=== PATIENT | female | born 1975 | race Caucasian/White ===

== ENCOUNTER → 2018-06-21 22:02 | Outpatient (CLI) | payer OTHER, BC, SELFPAY ==
[2018-06-28 07:10] LABS: HPV Reflexed? NOT INDICATED
== END ==
PROVIDERS: Visit Provider Nurse Practitioner Adult Health
DX: Z01.419 Encounter for gynecological examination (general) (routine) without abnormal findings (principal)
CPT/HCPCS: 88175; G0145

== ENCOUNTER → 2019-01-23 15:49 | Outpatient (CLI) | payer OTHER, SELFPAY ==
--- NOTE | 2019-01-23 15:53 | BI_ITS ---
MAMMOGRAPHY - BILATERAL SCREENING REASON FOR EXAM: Female, 43 years old. Routine annual screening examination. PERTINENT HISTORY: Non-contributory. TECHNIQUE: Digital bilateral breast polly (3D mammographic acquisition) in the CC and MLO projections. 2-D mediolateral oblique (MLO) and craniocaudad (CC) views of both breasts were obtained. CAD: Full Field Digital Mammography with Computer Added Detection was performed. COMPARISON: None. Baseline examination. FINDINGS: Breast Composition: The breasts are extremely dense, which lowers the sensitivity of mammography. There are no dominant masses or suspicious calcifications. No other significant abnormalities are identified. BI/SCREENING MAMM (CAD), BILAT IMPRESSION: Negative screening mammogram. Yearly followup mammogram recommended. (A) ASSESSMENT CATEGORY: BIRADS Category 1: Negative. A letter regarding these results will be sent to the patient by the facility within 30 days. Approximately 10% of breast cancers are not detected by mammography. A normal mammogram should not delay biopsy of a clinically suspicious abnormality. [id number] Electronically Signed: Taran Colon, at 9:09 EDT , Service support ,
== END ==
PROVIDERS: Family Provider Family Medicine; PCP Family Medicine; Referring Provider Nurse Practitioner Adult Health; Visit Provider Nurse Practitioner Adult Health
DX: Z12.31 Encounter for screening mammogram for malignant neoplasm of breast (principal)
CPT/HCPCS: 77063; 77067

== ENCOUNTER → 2023-08-15 | Outpatient (CLI) | payer OTHER, SELFPAY | END | disposition home or self-care (01) | PROVIDERS: PCP Family Medicine; Visit Provider Nurse Practitioner Family | DX: N39.0 Urinary tract infection, site not specified (principal) | CPT/HCPCS: 87077; 87086; 87088; 87186 ==

== ENCOUNTER → 2024-08-15 | Outpatient (CLI) | payer OTHER, SELFPAY ==
--- NOTE | 2024-08-15 14:58 | RAD_ITS ---
INDICATION: Abdominal pain EXAMINATION/TECHNIQUE: X-RAY - XR Abdomen W/ Decub and/or Erect Views COMPARISON: No relevant prior comparison study available FINDINGS: BOWEL GAS PATTERN: Non-obstructive. No bowel or stomach distention. FREE AIR: Not assessed on a single supine view. ORGANOMEGALY: Not seen. CALCIFICATIONS: No abnormal calcifications observed. LOWER CHEST: No acute pathology. BONES AND SOFT TISSUES: No acute pathology. There are fallopian tube coils visualized within the pelvis. RAD/Abd Inc Decub and/or Erect IMPRESSION: Non-obstructive bowel gas pattern. Electronically Signed: Shelly Garcia MD at 8:54 EDT ,
[2024-08-15 17:53] LABS: Basophil# 0.05 X10^3/uL; Basophil% 0.4 % (0-1); Eosinophil# 0.01 X10^3/uL; Eosinophils% 0.1 % (0-5); Hematocrit 41.3 % (37-47); Hemoglobin 14.1 g/dL (12.0-15.0); Mean Corp Hgb Conc 34.1 g/dL (32-36); Mean Corpuscular Volume 87.9 fL (81-99); Mean Platelet Vol. 9.1 fl (6.2-12.0); Monocyte# 0.37 X10^3/uL; Monocyte% 2.8 % (0-10); NRBC Flagged by Analyzer 0 % (0-5); Neutrophil # 12.03 X10^3/uL (2.7-7.7); Neutrophil % 90.4 % (47-70); Platelet Count 448 K/mm3 (150-450); RBC Distribution Width CV 12.6 % (11.6-14.6); RBC Distribution Width SD 40.8 fl (35.1-43.9); White Blood Count 13.3 K/mm3 (4.4-11.0)
[2024-08-15 18:28] LABS: AST(SGOT) 228 U/L (15-37); Alanine Aminotransfer ALT/SGPT 142 U/L (13-56); Albumin, Serum 3.7 g/dL (3.2-5.0); Alkaline Phosphatase 103 U/L (45-117); Amylase 54 U/L (25-115); Anion Gap 9 (5-15); BUN 12 mg/dL (7-18); BUN/Creat Ratio 14.1 RATIO (10-20); Calcium,Total 10.3 mg/dL (8.5-10.1); Chloride 102 mmol/L (98-107); Creatinine, Serum 0.85 mg/dL (0.55-1.02); EST Glomerular Filtration Rate 76 mL/min (>60); Est Glom Filt Rate - Afr Amer 91 mL/min (>60); Globulin 3.6 g/dL (2.2-4.2); Glucose 116 mg/dL (74-106); Lipase 32 U/L (13-75); Potassium 3.5 mmol/L (3.5-5.1); Protein, Total 7.3 g/dL (6.4-8.2); Sodium Level 134 mmol/L (136-145)
[2024-08-15 18:31] LABS: Erythrocyte Sedimentation Rate 10 mm/hr (0-30)
== END | disposition home or self-care (01) ==
LOC: MTLAB 14:58
PROVIDERS: PCP Family Medicine; Referring Provider Family Medicine; Visit Provider Family Medicine
DX: R10.9 Unspecified abdominal pain (principal)
CPT/HCPCS: 36415; 74019; 80053; 82150; 83690; 85025; 85652

== ENCOUNTER → 2024-08-17 | Outpatient (CLI) | payer OTHER, SELFPAY ==
--- NOTE | 2024-08-17 10:21 | US_ITS ---
STUDY: ABDOMINAL ULTRASOUND REASON FOR EXAM: Female, 49 years old. Recurrent right upper quadrant pain. TECHNIQUE: Transabdominal ultrasound was performed with real-time and static morley scale imaging. TECHNICAL QUALITY: Adequate. COMPARISON: None. FINDINGS: Liver: The liver measures 15.3 cm. There is increased echogenicity consistent with fatty infiltration. The bile ducts are within normal limits. There is hepatic color flow. The direction of portal flow is hepatopetal. There is a 2.5 cm x 2.4 cm x 2.5 cm cyst in the superior aspect of the left lobe of the liver. Gallbladder: Normal distended gallbladder. The gallbladder wall measures 2.3 mm. There is a negative sonographic Law''s sign. There is no pericholecystic fluid. There are multiple echogenic structures within the gallbladder, consistent with multiple gallstones. Sludge is also seen in the gallbladder lumen. Common Bile Duct (C.B.D.): The common bile duct measures 2.7 mm. Pancreas: Normal size of the head of the pancreas. The body and tail portions obscured by overlying bowel gas. There is normal echogenicity of the pancreas. There is no demonstrated pancreatic mass or cyst. Spleen: Normal size of the spleen. The spleen measures 11.4 cm x 5.2 cm x 4.8 cm. Right Kidney: Normal size of the right kidney. The right kidney measures 10.5 cm x 5.6 cm x 4.4 cm. Normal renal cortex. The right cortex measures 1.2 cm. There is no demonstrated renal mass or cyst. There is no right hydronephrosis. Left Kidney: Normal size of the left kidney. The left kidney measures 10.1 cm x 4 cm x 4.8 cm. Normal renal cortex. The left cortex measures 1.7 cm. There is no demonstrated renal mass or cyst. There is no left hydronephrosis. Aorta: Unremarkable I.V.C.: The IVC is patent. There is no ascites. US/Abdomen Complete IMPRESSION: Multiple gallstones and sludge within the gallbladder lumen. 2.5 cm x 2.4 cm x 2.5 cm cyst in the superior aspect of the left lobe of the liver. Electronically Signed: Taran Colon MD at 13:40 EDT ,
== END | disposition home or self-care (01) ==
LOC: OPUS 10:10
PROVIDERS: PCP Family Medicine; Referring Provider Family Medicine; Visit Provider Family Medicine
DX: K81.9 Cholecystitis, unspecified (principal)
CPT/HCPCS: 76700

== ENCOUNTER 2024-08-31 09:01 | Day surgery (SDC) | payer OTHER, SELFPAY ==
[2024-08-31] VITALS (11 sets, daily range): BP systolic 94–139; BP diastolic 64–78; PULSE 76–90; RESP 15–16; TEMP 36.3–37.1; O2SAT 96–100; BMI 27.4
--- NOTE | 2024-08-31 09:17 | EKG12_ITS ---
Test Reason : pre-op Blood Pressure : / mmHG Vent. Rate : 100 BPM Atrial Rate : 100 BPM P-R Int : 124 ms QRS Dur : 080 ms QT Int : 356 ms P-R-T Axes : 044 045 030 degrees QTc Int : 459 ms Normal sinus rhythm Minor Nonspecific ST abnormality Abnormal ECG No previous ECGs available Confirmed by Dipak June ([id number]), editor news LYNN BROOKS ([id number]) on 09/04/2024 12:11:39 PM Referred By: Marshall Guerra Confirmed By:Dipak June
[2024-08-31 09:30] LABS: Internal QC Validated? YES +Cl - CLEAR BKGD; Pregnancy, Urine Negative Negative
--- NOTE | 2024-08-31 09:36 | HP.PCM_ITS ---
History and Physical Date of Admission: 08/31/24 Intake Vital Signs 08/15/2308:57 08/21/2409:01 Height 5 ft 3 in 5 ft 3 in Weight: 158 lb BMI 28.0 BP 136/86 H Blood Pressure Location Rt brachial Position Sitting Respiration 16 Pulse 98 Pulse Source Monitor Temp 98.3 F Temp Source Temporal Pulse Oximetry (%) 100 Oxygen Delivery Method room air Intake Visit Reasons: GALLBLADDER Chief Complaint: Intermittent RUQ pain Accompanied by: Is patient in pain?: No Allergies Penicillins Allergy (Verified 08/21/24 08:59) Rash Medications ?Medication ?Instructions ?Recorded ?Confirmed ?Type omeprazole 40 mg capsule,delayed 40 mg PO BID 08/21/24 08/21/24 History release [facility] Medical History (Updated 08/21/24 @ 09:[address] Marshall Guerra MD) Encounter for Essure implantation Dysuria Social History (Updated 08/21/24 @ 09:03 by Eri Jaimes) Smoking Status: Never smoker alcohol intake: never substance use type: does not use additional social history: No aspirin or ibuprofen use. HPI HPI HPI: Patient is a 49-year-old female here with gallbladder disease. The patient has multiple stones and sludge on ultrasound. The patient reports that she has been having pain for about a year. She said it used to be intermittent but Wednesday she had an attack that did not go away she says when she had the attack the pain was in her epigastric and right upper quadrant region. ROS General General: No weight change, fatigue, colon cancer or breast cancer HEENT HEENT: No difficulty swallowing, eye injury, eye surgery or swollen glands Endo Endocrine: No thyroid disease, diabetes mellitus or thyroid cancer Skin Skin: No rash or changing moles Musc Musculoskeletal: No back problems, arthritis, rheumatoid arthritis or gout Cardio Cardiovascular: No murmur, pacemaker, heart disease, atrial fibrillation, high blood pressure, heart attack or heart stent Psych Psychiatric: No depression or anxiety Resp Respiratory: No shortness of breath, No sleep apnea, No cough, No COPD, No asthma and No emphysema Gastro Gastrointestinal: Yes abdominal pain (Intermittent RUQ), No nausea or vomiting, No diarrhea, No constipation, No blood in stool, No acid reflux, No hemorrhoids, No ulcers, Yes gallbladder problem and No black,tarry stools Glenn Hematologic: No blood thinners, No blood disorders, No bleeding, No anemia and No blood clots Neuro Neurologic: No numbness and No tingling Exam Const General: cooperative Orientation: alert and oriented x3 HENMT Head: normal to inspection Neck Neck: normal visual inspection and full ROM Chest Chest palpation & inspection: normal inspection of the chest Resp Effort & Inspection: normal respiratory effort Auscultation: clear to auscultation bilaterally Cardio Rate: regular rate Rhythm: regular rhythm GI Inspection: non-distended Palpation: soft and nontender Skin General: no rashes or lesions noted Neuro General: patient alert and patient oriented x3 Extrem General: full ROM Psych Appearance: grossly normal Mental Status: mental status grossly normal Assessment and Plan Assessment and Plan (1) Cholelithiasis: Status: Acute Qualifiers: Cholelithiasis location: gallbladder Cholecystitis presence: without cholecystitis Biliary obstruction: without biliary obstruction Qualified Code(s): K80.20 - Calculus of gallbladder without cholecystitis without obstruction Plan: The patient has been having right upper quadrant pain for a year but she had an attack on Wednesday that was more severe than she has ever had and it did not go away at the normal time. I explained this is likely cholecystitis and this pain did resolve eventually. I recommended laparoscopic cholecystectomy to prevent this from happening again future. I discussed the procedure in detail with the patient. I discussed the risks, benefits, and alternatives of the procedure. I discussed the risks including but not limited to bleeding, infection, injury to surrounding organs such as the liver, bile duct, bowels. I did discuss the possibility of having to convert to an open procedure as well as the possibility that if any injuries occurred this may necessitate further surgery at a tertiary care center. Marshall Guerra MD Pager: [facility] [address] [place] [address], [address] [place] [address] Office: I have examined the patient and the H&P has been reviewed. There are no clinical changes since date of exam.
[2024-08-31] MEDS: Lactated Ringers 1,000 ML 15 ML IV (09:54)
--- NOTE | 2024-08-31 10:09 | PRE.ANES_ITS ---
ASA Classification* ASA Classification ASA Classification: 2 Assessment & Plan Anesthesia* Anesthesia Assessment Anesthesia Assessment: Discussed sedation and/or anesthesia options, risks, benefits, and alternatives with patient/parents/legal guardian/POA. Questions invited. The patient/parents/legal guardian/POA seems to understand and agrees to proceed with anesthesia plan. Reviewed the physical assessment, medical history, allergy history and patient home medications list prior to surgery/procedure/anesthetic and documented any changes. Performed airway and anesthesia risk assessments. Anesthesia Type Anesthesia Type: General (see written pre anesthesia record for full assessment) Anesthesia Focused Assessment* Temperature: 97.3 F Pulse Rate: 90 Blood Pressure: 139/78 Respiratory Rate: 16 Pulse Ox: 100 Airway Assessment Mouth opens: >3 cm Mallampati Score: II Focused Labs Anesthesia Preop lab: CBC WBC 13.3 K/mm3 (4.4-11.0) H 08/15/24 15:00 RBC 4.70 M/mm3 (4.2-5.4) 08/15/24 15:00 Hgb 14.1 g/dL (12.0-15.0) 08/15/24 15:00 Hct 41.3 % (37-47) 08/15/24 15:00 Plt Count 448 K/mm3 (150-450) 08/15/24 15:00 CHEMISTRY Potassium 3.5 mmol/L (3.5-5.1) 08/15/24 15:00 Sodium 134 mmol/L (136-145) L 08/15/24 15:00 BUN 12 mg/dL (7-18) 08/15/24 15:00 Creatinine 0.85 mg/dL (0.55-1.02) 08/15/24 15:00 Glucose 116 mg/dL (74-106) H 08/15/24 15:00 COAG Urine Test Negative Negative 08/31/24 09:15 Pre-Assessment Diagnosis/Proposed Procedure Planned Operative Procedure(s): LAP MARYANNE WITH GRAMS Anesthesia History Anesthesia History - sap technical developer: Anesthesia History - sap technical developer Hx Hospitalization No 08/23/24 08:40 Any Problems With Anesthesia No 08/23/24 08:40 Cholinesterase deficiency No 08/23/24 08:40 You/Your Family Experience No 08/23/24 08:40 fever (hyperthermia) with Relationship Recent Exposure to Contagious No 08/31/24 09:46 Disease Does patient have nerve No 08/23/24 08:40 stimulator Patient instructed to have device shut off --Does patient have Pacemaker No 08/31/24 09:46 or ICD? When Was Last Pacemaker Check QUESTION #4 FULL TEXT: You/Your Family Experience fever (hyperthermia) with Anesthesia Last Oral Intake Last Oral intake: Last Oral Intake NPO since 08:00 08/31/24 09:46 Meds taken in AM with sips of Yes 08/31/24 09:46 water? Meds patient instructed to SEE MAR 08/31/24 09:46 take am of surgery PONV PONV - sap technical developer: PONV - sap technical developer Female Yes 08/23/24 08:40 HX of Motion Sickness No 08/23/24 08:40 HX of N/V After Surgery No 08/23/24 08:40 Non-Smoker Yes 08/23/24 08:40 Duration of Surgery greater No 08/23/24 08:40 than 60 minutes Number of Risk Factors 2 08/23/24 08:40 PONV Score Moderate Risk 08/23/24 08:40 Height & Weight Height & Weight: Anesthesia: Height & Weight Height 5 ft 3 in 08/31/24 09:46 Weight: 70.307 kg 08/31/24 09:46 Body Mass Index (BMI) 27.4 08/31/24 09:46 Respiratory Assessment Respiratory Assessment - sap technical developer: Respiratory Tract Infection Hx - sap technical developer Hx Respiratory Tract Infection No 08/23/24 08:40 STOP Sleep Apnea STOP Sleep Apnea - sap technical developer: STOP Sleep Apnea - sap technical developer Hx Hypertension No 08/23/24 08:40 Hx Sleep Apnea No 08/23/24 08:40 CPAP BIPAP Do you snore loudly (louder No 08/23/24 08:40 than talking or can be heard Do you often feel tired/ No 08/23/24 08:40 fatigued/ sleepy during daytime? Has anyone observed you stop No 08/23/24 08:40 breathing during sleep? STOP Results Negative 08/23/24 08:40 QUESTION #5 FULL TEXT : Do you snore loudly (louder than talking or can be heard through closed doors)? Tobacco Use History Tobacco Use History - sap technical developer: Tobacco Use History - sap technical developer Tobacco Use Smoking Status Never smoker 08/23/24 08:40 Hx Tobacco Use No 08/23/24 08:40 Years Smoking Packs Smoked per Day Smoking Cessation Date was within the last 15 years Hx Smoking Cessation Date Hx Smoking Cessation Counseling Hematologic Medial History Hematologic Hx - sap technical developer: Hematologic Medical Hx - inside sales person Hx of Blood Transfusion No 08/23/24 08:40 Hx of Transfusion in last 3 No 08/23/24 08:40 Months Date of Last Transfusion (if within last 3 months) Ever experience any problems No 08/23/24 08:40 with transfusion(s)? Specify any problems Hx of Preganancy in last 3 No 08/23/24 08:40 Months Nurse Filling Out Transfusion DSCHRIBER 08/23/24 08:40 & Questions: Date: 08/23/24 08/23/24 08:40 Time: 08:41 08/23/24 08:40 Patient unable to answer at this time (ie. confused, unrespo /Reproduction History /Reproductive History - sap technical developer: /Reproductive Hx- sap technical developer Hx Now No 08/23/24 08:40 Gestational Age (in weeks): EDC: Hx Hx Para Hx Section SAB No 08/23/24 08:40 Active Medications Active Medications: Current Medications Generic Name Dose Route Start Last Admin Trade Name Freq PRN Reason Stop Dose Admin Clindamycin Phosphate 900 mg in 50 mls @ 75 mls/hr 08/31/24 10:25 Cleocin IV 08/31/24 11:04 PREOP ONE Lactated Ringer's 1,000 mls @ 15 mls/hr 08/31/24 09:15 08/31/24 09:54 IV 09/05/24 22:34 15 mls/hr .Q48H PETER Administration Protocol PFSH Medical History Alcohol use History of ulceration Non-smoker Encounter for Essure implantation Dysuria Home Medications ?Medication ?Instructions ?Recorded ?Last Taken ?Type omeprazole 40 mg capsule,delayed 40 mg PO BID 08/21/24 08/31/24 08:00 History release Allergy/AdvReac Type Severity Reaction Status Date / Time Penicillins Allergy Rash Verified 08/31/24 09:46 Surgical History History of wisdom tooth extraction Social History Smoking Status: Never smoker alcohol intake: never substance use type: does not use additional social history: No aspirin or ibuprofen use. Review of Systems (Anesthesia) ROS Narrative System reviewed and no additional complaints, except as documented.
[2024-08-31] MEDS: Clindamycin 900 MG/50 ML BAG 75 MG IV (10:11)
--- NOTE | 2024-08-31 10:25 | GALL_PTH ---
PATIENT: ELOY [place] [facility] [id number] AGE/SX: 49/F ROOM: RE08/31/[address]: Dr. Marshall Guerra MD : 1975 BED: DIS: 08/31/2024 SPEC #: [id number] RECD: 08/31/24 13:23 STATUS: NORMA REJaney #: [id number] NAOMIE: 08/31/24 10:[address]: Marshall Guerra DEPT: SURGICAL PATHOLOGY RECD BY: Anthony Foote ENTERED: 08/31/24 13:55 SP TYPE: PEARL MCMAHON DR: Dr. Noel Aguilera MD Tissues: Gallbladder, NOS Procedures: Surgery Specimen Level III HEADER OPERATION: Laparoscopic, cholecystectomy with IOC PRE-OP DIAGNOSIS: Cholelithiasis TISSUE SUBMITTED: Gallbladder MICROSCOPIC DIAGNOSIS Gallbladder, cholecystectomy: Cholesterolosis, chronic cholecystitis and cholelithiasis. AM.mr 09/01 MICROSCOPIC DESCRIPTION Slides are reviewed. GROSS DESCRIPTION Received is one container labeled with the patient's name and designated gallbladder. The specimen consists of a gallbladder measuring 8.0 cm in length and up to 3.5 cm in diameter. The external surface is pink-lee, smooth and glistening for the most part. Focally it is granular, hemorrhagic and contains cautery artifact. The gallbladder contains green-yellow mucoid bile and multiple ovoid to irregular green stones measuring in aggregate 3.5 x 2.5 x 1.0 cm and 0.1 to 1.0 cm in greatest dimension. The mucosa also shows several yellowish streaks consistent with cholesterolosis. The mucosa is bile-stained and without any mass lesions. The gallbladder wall measures up to 0.2 cm in thickness. Stonecutter Hand sections from the gallbladder and the cystic duct are submitted in one cassette. / SJ:mr 08/31/2024 TC:3 CPT: 44014
--- NOTE | 2024-08-31 10:31 | RAD_ITS ---
CLINICAL HISTORY: Female, 49 years old. Right upper quadrant pain PROCEDURE: CHOLANGIOGRAM - intraoperative FLUOROSCOPY TIME (if supplied): 12 seconds Placement of the catheter and the procedure were performed by: Operating surgeon Fluoroscopy was provided by computed tomography technologist, who was present in the room time of the procedure. TECHNIQUE: (Fluoroscopic guided intraoperative cholangiogram was performed in usual fashion. 86 fluoroscopic guided images were obtained in the anterior projection to document findings during the study. For more complete information recommend correlation with surgical notes RAD/Cholangiogram/ O R,Initial IMPRESSION: Fluoroscopic-guided intraoperative cholangiogram Electronically Signed: Joel Sanz MD at 19:07 EDT ,
[2024-08-31] MEDS: Bupiv/Epi 0.25% 30 ML Vial (10:59)
--- NOTE | 2024-08-31 11:01 | PCM.OPRPT ---
Report of Operation Date of Procedure: 08/31/24 Pre-Operative Diagnosis: Cholelithiasis and biliary colic Post-Operative Diagnosis: Same Surgery/Procedure Performed:: Laparoscopic cholecystectomy with cholangiograms Type of Anesthesia: General/Regional Specimen's removed: Gallbladder Estimated Blood Loss (mL): 10 Description of Procedure: After obtaining informed consent patient was brought back to the operating room. General anesthesia was induced. The abdomen was prepped and draped in usual sterile fashion. A small midline incision was made superior to the umbilicus and deepened to the level of fascia. The fascia was elevated and incised. Next the peritoneum was elevated and incised in the same fashion. Finger sweep was performed and the Carrlilo trocar was placed into the abdomen. The balloon was inflated. The abdomen was inflated to 15 mmHg. Next a camera was introduced into the abdomen and the abdomen was inspected. Next under direct visualization three 5-mm ports were placed one subxiphoid and 2 subcostal. Next the gallbladder was elevated and retracted toward the right shoulder. The peritoneum was stripped from the gallbladder. The infundibulum was located and retracted laterally. Next the triangle of Calot was dissected and the cystic duct and cystic artery were identified. Cholangiograms were performed. The Gunn clamp was used to clamp across the infundibulum and the catheter needle was inserted into the gallbladder. Under fluoroscopy contrast was instilled into the gallbladder and the common duct, cystic duct as well as proximal hepatic ducts were identified. There was good filling of the duodenum. There were no filling defects noted in the common bile duct. The clamp was removed as well as the needle and the infundibulum was grasped once more. Three hemolock clips were placed across the cystic duct. The cystic duct was then divided leaving 2 clips on the stump. The cystic artery was clipped and divided in the same fashion. The hook cautery was then used to take the gallbladder off of the gallbladder bed. Hemostasis was obtained. Gallbladder fossa was irrigated and no active bleeding or bile leakage was noted. Next the camera was introduced in the subxiphoid port. An Endopouch bag was placed through the umbilical port and the gallbladder was placed into it. The gallbladder was then removed through the umbilical incision. The camera was then reinserted through the umbilical port. The gallbladder fossa was inspected once more and noted to be hemostatic with no leaking bile. The abdomen was suctioned dry. The 5 mm ports were removed under direct visualization. The umbilical port was then removed and the air was removed from the abdomen. Next using an 0 Vicryl suture the umbilical fascia was closed in a [id number] fashion. The umbilical port site was irrigated local anesthetic was administered to all the incisions. All the incisions were closed with interrupted subcuticular 4-0 Monocryl sutures followed by Steri-Strips and dressings. The patient was awoken and taken to PACU in stable condition. Admit VTE Documentation VTE Mechan Device Prophylaxis: SCD's
--- NOTE | 2024-08-31 11:02 | DCINST_ITS ---
Discharge Instructions Procedure Gallbladder Diet Discharge Diet: Light diet - advance as tolerated Activity Discharge Activity: May Not Drive (for 2-3 days or while taking narcotic pain medications.) and - (Do not drive, work heavy equipment or sign legal documents for 24 hours.) May shower in (days): 1 Lifting Restrictions: 20 lbs for 2 weeks Additional Activity Instructions:: Pain medication may cause nausea. You should typically eat light foods as you take your pain medications. Pain medication may also cause constipation. If this is a problem for you, please discuss with your doctor. Alternate ibuprofen and Tylenol for pain control, oxycodone for breakthrough pain Dressing / Incision Call your doctor if your incision/area has: Continuous Slow Oozing, Sudden Increased Bleeding, Increased Pain/ Swelling, Increased Redness and Foul Smelling Discharge Call your doctor if you observe: Fever of 101 or Higher Suture Line Care: Avoid Pulling/Pushing and Avoid Pinching/Bending Remove Dressing in: 2 days Additional Dressing/Incision Instructions:: Leave operative bandaids on for 2 days. When you remove dressing, leave Steri-Strips on until your follow-up appointment, or until the Steri-Strips fall off on their own. Follow Up Care Please Follow Up With: Marshall Guerra MD When: Please call to schedule 2 week follow up appointment. [phone] Test Results: Test results from this visit will be discussed in further detail at your follow- up appointment, if applicable. Discharge Plan Admission Attending Provider: Marshall Guerra Primary Care Provider: Noel Aguilera Instructions Print Language: Georgian Discharge Orders/Prescriptions Prescriptions: New oxycodone 5 mg Tablet 5 - 10 mg PO Q4H PRN PRN (Reason: Pain Score 4-10) 5 Days Qty: 15 0RF No Action omeprazole 40 mg capsule,delayed release(DR/EC) 40 mg PO BID Referrals / Follow Up: Noel Aguilera MD [Primary Care Provider] - Disposition Disposition (needs filled in before D/C Order can be placed): Home, Self Care
--- NOTE | 2024-08-31 11:21 | PCM.POST.ANE ---
Anesthesia: Postop Eval I Current Vital Signs Temperature: 98.4 F Pulse Rate: 82 Blood Pressure: 94/64 Respiratory Rate: 16 Pulse Ox: 97 Assessment Airway patent: Yes Spontaneous unlabored respirations: Yes nausea: No Vomiting: No Anesthesia Complication: No Fluid Hydration Crystalloid volume administer (ml): 1,000 Total IV fluid infused: 1,000 Progress Note Anesthesia document: Postop Eval 1 completed: Yes
--- NOTE | 2024-08-31 11:28 | POSTOPAN2_ITS ---
Anesthesia Postop Eval I Sum Postop Eval Completion status Anesthesia document: Postop Eval 1 completed: Yes Anesthesia Postop Eval I Summary Anesthesia Postop Eval I Summary: Anesthesia Postop Eval I: Assessment Summary Airway patent Yes 08/31/24 11:21 SCULPTURE CONSERVATOR.CSIR Spontaneous unlabored Yes 08/31/24 11:21 SCULPTURE CONSERVATOR.CSIR respirations Mental status nausea No 08/31/24 11:21 SCULPTURE CONSERVATOR.CSIR Vomiting No 08/31/24 11:21 SCULPTURE CONSERVATOR.CSIR Anesthesia Postop Eval I: Fluid Summary Crystalloid volume administer 1,000 08/31/24 11:21 SCULPTURE CONSERVATOR.CSIR (ml) Colloids volume administered ( ml) Blood Product volume administered (ml) Total IV fluid infused 1,000 08/31/24 11:21 SCULPTURE CONSERVATOR.CSIR Anesthesia Postop Eval I: Summary Notes Anesthesia Complication No 08/31/24 11:21 SCULPTURE CONSERVATOR.CSIR Anesthesia Complication Comment: Post-operative progress note Anesthesia: Postop Eval II Evaluation Mental status: Awake Pain Level: 0 nausea: No Vomiting: No
--- NOTE | 2024-08-31 11:28 | PCM.POSTANE2 ---
Anesthesia Postop Eval I Sum Postop Eval Completion status Anesthesia document: Postop Eval 1 completed: Yes Anesthesia Postop Eval I Summary Anesthesia Postop Eval I Summary: Anesthesia Postop Eval I: Assessment Summary Airway patent Yes 08/31/24 11:21 [email or web address] Spontaneous unlabored Yes 08/31/24 11:21 [email or web address] respirations Mental status nausea No 08/31/24 11:21 [email or web address] Vomiting No 08/31/24 11:21 [email or web address] Anesthesia Postop Eval I: Fluid Summary Crystalloid volume administer 1,000 08/31/24 11:21 [email or web address] (ml) Colloids volume administered ( ml) Blood Product volume administered (ml) Total IV fluid infused 1,000 08/31/24 11:21 [email or web address] Anesthesia Postop Eval I: Summary Notes Anesthesia Complication No 08/31/24 11:21 [email or web address] Anesthesia Complication Comment: Post-operative progress note Anesthesia: Postop Eval II Evaluation Mental status: Awake Pain Level: 0 nausea: No Vomiting: No
== END 2024-08-31 13:14 | disposition home or self-care (01) ==
LOC: SDC 09:04 → AC 09:05
PROVIDERS: Anesthesiology; PCP Family Medicine; Referring Provider Surgery; Visit Provider Surgery
PROC: (CPT 47610; principal; 2024-08-31 10:05)
DX: K80.10 Calculus of gallbladder with chronic cholecystitis without obstruction (principal)
CPT/HCPCS: 47563; 00790; 74300; 76000; 81025; 88304; 93005; J7120; J2405